=== PATIENT | male | born 1985 ===

== ENCOUNTER 2021-09-17 10:15 | Emergency (ER) | payer SELFPAY ==
[~2021-09-17] VITALS: Ht 182.9 cm; Wt 121.0 kg
--- NOTE | 2021-09-18 15:17 | EKG ---
[facility] [address] [place], [place] [address] Signed Poor data quality, interpretation may be adversely affected Normal sinus rhythm Inferior infarct , age undetermined Abnormal ECG No previous ECGs available Confirmed by ELY SMITH MD ([id number]) on 09/18/2021 3:17:14 PM Electronically Signed By: ELY SMITH MD 09/18/21 1517 PATIENT NAME: DERICK CID Electrocardiogram DATE OF : 85 PHYSICIAN: ELY SMITH MD REPORT #: [id number] REPORT IS CONFIDENTIAL AND NOT TO BE RELEASED WITHOUT AUTHORIZATION
== END 2021-09-17 12:07 | disposition home or self-care (01) ==
LOC: ED 10:15
DX: K21.9 Gastro-esophageal reflux disease without esophagitis (principal)
CPT/HCPCS: 36415; 84484; 93005; 93010; 99285-25